=== PATIENT | female | born 1970 | race Caucasian/White ===

== ENCOUNTER 2017-07-07 14:46 | Emergency (ER) | payer OTHER ==
[~2017-07-07] VITALS: Ht 160 cm; Wt 117.9 kg
--- NOTE | 2017-07-07 15:48 | ED Upper Extremity ---
General Chief Complaint: Upper Extremity Stated Complaint: R SHOULDER PAIN Nursing Triage Note: pt presents to ed with complaints of r shoulder pain. reports has an old injury but pain is wosr since sunday. Nursing Sepsis Screen: No Definite Risk Source: patient Exam Limitations: no limitations History of Present Illness Date Seen by Provider: July 07, 2017 Time Seen by Provider: 15:48 Initial Comments Patient presents to the emergency department with complaints of right shoulder pain. Does report an old injury "from when she was younger". Denies any known recent injury. States she was driving when she lifted the right arm. Leighton a sharp pain on the right shoulder. Now has difficulty elevating the arm above 90 . Onset: yesterday (chronic pain, worse yesterday) Pain/Injury Location: right shoulder Method of Injury: other (lifted the right arm while driving yesterday.) Modifying Factors: Improves With Immobilization; Worse With Movement Allergies and Home Medications Allergies Coded Allergies: Sulfa (Sulfonamide Antibiotics) (Verified Allergy, Severe, 07/07/17) erythromycin base (Verified Allergy, Unknown, 07/07/17) Home Medications Orphenadrine Citrate 100 Mg Tablet.er, 100 MG PO BID PRN for SPASMS Prescribed by: KATHRINE DURANT on 07/07/17 1633 Prednisone 20 Mg Tab, 40 MG PO DAILY Prescribed by: KATHRINE DURANT on 07/07/17 1633 Tramadol HCl 50 Mg Tablet, 50 MG PO Q6H PRN for pain Prescribed by: KATHRINE DURANT on 07/07/17 1633 Patient Home Medication List Home Medication List Reviewed: Yes Constitutional: no symptoms reported Respiratory: no symptoms reported Cardiovascular: no symptoms reported Gastrointestinal: no symptoms reported Musculoskeletal: see HPI; No back pain; joint pain (right shoulder pain); No joint swelling, No neck pain Skin: no symptoms reported Psychiatric/Neurological: Denies Numbness, Denies Paresthesia, Denies Tingling , Denies Weakness All Other Systems Reviewed Negative Unless Noted: Yes (Negative excepted noted.) Past Ksfbhda-Taanil-Nvmwfe Hx Patient Social History Alcohol Use: Occasionally Uses Recreational Drug Use: No Smoking Status: Former Smoker Type Used: Cigarettes Former Smoker, Quit: July 20, 2015 Recent Foreign Travel: No Contact w/Someone Who Travel: No Recent Infectious Disease Expo: No Physical Abuse: No Sexual Abuse: No Fear: No Past Medical History Respiratory: No Cardiac: No Neurological: No Gastrointestinal: No Musculoskeletal: Yes (chronic right shoulder pain) Nursing Suicide Risk Score: 0 Family Medical History Reviewed Nursing Family Hx No Pertinent Family Hx Physical Exam Vital Signs Vital Signs - First Documented 07/07/17 14:57 Temp 97.1 Pulse 103 Resp 16 B/P (MAP) 169/90 (116) Pulse Ox 98 Capillary Refill : Less Than 3 Seconds General Appearance: WD/WN, no apparent distress Neck: non-tender, full range of motion, supple, normal inspection Cardiovascular: normal peripheral pulses, regular rate, rhythm, no murmur Respiratory: chest non-tender, lungs clear, normal breath sounds, no respiratory distress, no accessory muscle use Back: normal inspection, no vertebral tenderness Shoulder: normal inspection, no evidence of injury, limited ROM (patient is able to abduct the right shoulder from 0-80. Tenderness over the right posterior shoulder and right lateral shoulder. No evidence of swelling, deformity, ecchymosis, or abrasions.) Elbow/Forearm: normal inspection, non-tender, no evidence of injury, normal ROM , Right Wrist: Yes normal inspection, Yes non-tender, Yes no evidence of injury, Yes normal ROM Hand: normal inspection, non-tender, no evidence of injury, normal ROM, Right Neurologic/Tendon: normal sensation, normal motor functions, normal tendon functions, responds to pain, no evidence tendon injury Neurologic/Psychiatric: no motor/sensory deficits, alert, normal mood/affect, oriented x 3 Skin: normal color, warm/dry Progress/Results/Core Measures Results/Orders My Orders Orders - KATHRINE DURANT Shoulder, Right, 3 Views (07/07/17 16:30) Ketorolac Injection (Toradol Injection) (07/07/17 16:30) Orphenadrine Injection (Norflex Injectio (07/07/17 16:30) Vital Signs/I&O 07/07/17 07/07/17 14:57 17:30 Temp 97.1 Pulse 103 84 Resp 16 20 B/P (MAP) 169/90 (116) 140/93 Pulse Ox 98 99 Blood Pressure Mean: 116 Diagnostic Imaging Diagonstic Imaging: Xray Plain Films/CT/US/NM/MRI: other (right shoulder) Comments SHOULDER, RIGHT, 3 VIEWS INDICATION: Right shoulder pain. COMPARISON: None available. TECHNIQUE: Three views of the right shoulder. FINDINGS: No acute fracture or traumatic malalignment. Heterotopic ossification is present along the superior aspect of the greater tuberosity which is likely in the rotator cuff and due to old trauma. Subacromial space is well maintained. Right lung is clear. IMPRESSION: Heterotopic ossification in the region of the rotator cuff insertion is likely due to old trauma and/or calcific tendinitis. Dictated by: Dictated on workstation # [id number] Reviewed: Reviewed by Me (radiology report reviewed by me) Departure Communication (Admissions) Diagnostic findings discussed with the patient. Plan for discharge to home. Impression Primary Impression: Right rotator cuff tendinitis Disposition: HOME, SELF-CARE Condition: Improved Departure-Patient Inst. Decision time for Depature: 17:10 Referrals: ELISABETH CUEVAS MD (PCP/Family) Primary Care Physician Patient Instructions: Rotator Cuff Tendinitis Strengthening Exercises, Rotator Cuff Tendinitis Stretching Exercises Add. Discharge Instructions: All discharge instructions reviewed with patient and/or family. Voiced understanding. Medications as instructed. Tylenol Extra Strength over-the- counter as directed for pain. Ibuprofen lhxw-das-cybwjkh as directed for pain. Avoid heavy lifting, pushing, or pulling for 3-5 days. Increase activity as tolerated. Follow-up with your primary care provider if no improvement in symptoms in 7-10 days. Return to the emergency department for worsened symptoms or any other concerns. Scripts Tramadol HCl (Tramadol HCl) 50 Mg Tablet 50 MG PO Q6H PRN for pain, #14 TAB 0 Refills Prov: KATHRINE DURANT 07/07/17 Orphenadrine Citrate (Orphenadrine Citrate) 100 Mg Tablet.er 100 MG PO BID PRN for SPASMS, #10 TAB 0 Refills Prov: KATHRINE DURANT 07/07/17 Prednisone (Prednisone) 20 Mg Tab 40 MG PO DAILY, #10 TAB 0 Refills Prov: KATHRINE DURANT 07/07/17 KATHRINE DURANT July 07, 2017 15:48
[2017-07-07] MEDS ORDERED: KETOROLAC 60 MG/2 ML VIAL IM STA (16:30)
[2017-07-07] MEDS ORDERED: ORPHENADRINE 60 MG/2 ML (NORFLEX) AMP IM STA (16:30)
[2017-07-07] MEDS ORDERED: PRD20T PO (16:33)
[2017-07-07] MEDS ORDERED: ORPH100T PO (16:33)
[2017-07-07] MEDS ORDERED: TRAM50TA2 PO (16:33)
--- NOTE | 2017-07-07 16:55 | Diagnostic Imaging Report ---
INDICATION: Right shoulder pain. COMPARISON: None available. TECHNIQUE: Three views of the right shoulder. FINDINGS: No acute fracture or traumatic malalignment. Heterotopic ossification is present along the superior aspect of the greater tuberosity which is likely in the rotator cuff and due to old trauma. Subacromial space is well maintained. Right lung is clear. IMPRESSION: Heterotopic ossification in the region of the rotator cuff insertion is likely due to old trauma and/or calcific tendinitis. Dictated by: Dictated on workstation # [id number]
[2017-07-07 17:30] VITALS: BP 140/93
== END 2017-07-07 17:31 | disposition home or self-care (01) ==
LOC: ER 14:48
DX: M75.101 Unspecified rotator cuff tear or rupture of right shoulder, not specified as traumatic (principal); Z87.891 Personal history of nicotine dependence; Z88.2 Allergy status to sulfonamides; Z88.1 Allergy status to other antibiotic agents; Z87.828 Personal history of other (healed) physical injury and trauma
CPT/HCPCS: 73030; 96372

== ENCOUNTER → 2017-11-20 | Outpatient (CLI) | payer OTHER ==
[~2017-11-20] MED LIST: ORPH100T PO; PRD20T PO; TRAM50TA2 PO
--- NOTE | 2017-11-20 13:55 | Diagnostic Imaging Report ---
EXAMINATION: Supine abdomen at 12:22 p.m. INDICATION: Right flank pain. FINDINGS: There are no prior studies available for comparison. There is a faint 3 mm area of increased density overlying the right renal contour. This could represent a small intrarenal calculus. There is no other calcification identified and there is no sign of a calculus along the expected path of the right ureter. There is no sign of nephrolithiasis on the left. There are a few elongated calcifications low in the pelvis on the left. These may represent phleboliths as opposed to a ureteral stone. There is gas in both the large and small bowel in a nonspecific fashion. There is no sign of bowel obstruction. There is no mass or organomegaly appreciated. The osseous structures are intact. There is at least moderate sclerosis of the left sacroiliac joint. IMPRESSION: 1. There is a question of nephrolithiasis on the right. If further study is desired, then CT will be recommended. 2. There is no other evidence for nephrolithiasis or urolithiasis. 3. The bowel gas pattern is nonspecific. There is no acute abnormality noted. Dictated by: Dictated on workstation # [id number]
== END ==
LOC: RAD 11:46
PROVIDERS: ATTEND Nurse Practitioner Family
DX: R10.9 Unspecified abdominal pain (principal); R31.9 Hematuria, unspecified
CPT/HCPCS: 74018

== ENCOUNTER → 2017-11-23 | Outpatient (CLI) | payer OTHER ==
--- NOTE | 2017-11-23 11:37 | Diagnostic Imaging Report ---
PROCEDURE: CT urinary tract, rule out kidney stone. TECHNIQUE: Multiple contiguous axial images were obtained through the abdomen and pelvis without the use of intravenous contrast. INDICATION: Right-sided pain. There are no prior CT examinations available for comparison. FINDINGS: The plain film examination of the abdomen performed on 11/20/2017 did raise the question of nephrolithiasis on the right. On this study, however, there is no sign of a calculus within the right kidney or along the expected path of the right ureter. The right kidney does not appear to be obstructed either. There is no sign of nephrolithiasis or urolithiasis on the left either. There is mild perinephric stranding about both kidneys. This may be a sequela of prior episodes of infection/inflammation. In the right adnexa adjacent to the uterus, there is a 3.7 x 7.3 CM septated cystic mass. I suspect that this is arising from the right ovary. If further study is desired, then ultrasound would be recommended. The uterus itself does not appear to be enlarged. The endometrial lining is slightly thickened measuring 18 MM (normal 5 mm or less). This finding is nonspecific. Correlation with the patient's menstrual cycle would be recommended. The left ovary is unremarkable. There is no solid pelvic mass or free fluid collection evident. The urinary bladder is grossly unremarkable. The liver, spleen, pancreas, adrenals, gallbladder, aorta and inferior vena cava show no sign of an acute abnormality. The stomach is partially filled with fluid and consequently difficult to assess. The lung bases are clear. The bone windows show no evidence for fracture or for destructive lesion. IMPRESSION: 1. There is no evidence for nephrolithiasis or urolithiasis and the kidneys do not appear to be obstructed. 2. There is a septated cystic mass in the right adnexa. This is most likely arising from the right ovary. If further study is desired, then ultrasound would be recommended. 3. There is no acute abnormality of the abdomen or pelvis noted otherwise. Dictated by: Dictated on workstation # [id number]
== END ==
LOC: RAD 08:55
PROVIDERS: ATTEND Nurse Practitioner Family
DX: N83.8 Other noninflammatory disorders of ovary, fallopian tube and broad ligament (principal); R10.9 Unspecified abdominal pain
CPT/HCPCS: 74176

== ENCOUNTER → 2017-12-13 | Outpatient (CLI) | payer OTHER ==
--- NOTE | 2017-12-13 14:13 | Diagnostic Imaging Report ---
EXAMINATION: Pelvic ultrasound. INDICATION: Right ovarian cyst. FINDINGS: There are no prior ultrasound examinations available for comparison. The CT abdomen/pelvis exam of 11/23/2017 did suggest a 3.7 x 7.3 cm septated mass arising from the right adnexa. On this exam, there is a 6.7 x 3.5 x 3.8 cm septated cystic mass evident in the right adnexa. I suspect that this is arising from the right ovary although the right ovary itself was difficult to visualize. The left ovary cannot be identified either. There is no solid pelvic mass or free fluid collection to indicate an acute abnormality. The uterus is not enlarged measuring 7.7 x 6.1 x 4.9 cm. The endometrial lining is not thickened measuring 5 mm. There is no focal mass involving the uterus to suggest a fibroid. IMPRESSION: 1. There is a 6.7 x 3.5 x 3.8 cm septated cystic mass in the right adnexa. This is most likely arising from the right ovary although the right ovary itself was not well visualized. If further study is desired, then laparoscopy should be considered. If there is no intervention at this time, then a short-term (4-6 weeks) follow-up pelvic ultrasound exam would be recommended. 2. There is no acute pelvic abnormality noted otherwise. 3. The left ovary is not identified either. Dictated by: Dictated on workstation # [id number]
== END ==
LOC: RAD 10:57
PROVIDERS: ATTEND Nurse Practitioner Family
DX: N83.201 Unspecified ovarian cyst, right side (principal)
CPT/HCPCS: 76830; 76856

== ENCOUNTER 2018-06-09 13:05 | Emergency (ER) | payer OTHER ==
[~2018-06-09] VITALS: Ht 162.6 cm; Wt 117.9 kg
--- NOTE | 2018-06-09 13:51 | ED Upper Extremity ---
General Chief Complaint: Upper Extremity Stated Complaint: RT SHOULDER PAIN Nursing Triage Note: reached down to grab something and heard a very loud pop on her right shoulder, she thought she felt her shoulder separate. Pt states pain is 5/10 without movement but when she does its excruciating. Arm is tender at the upper arm, humerous area. Pt states she has very limited ROM Nursing Sepsis Screen: No Definite Risk Source: patient Exam Limitations: no limitations History of Present Illness Date Seen by Provider: Jun 09, 2018 Time Seen by Provider: 13:25 Initial Comments This 47-year-old woman presents to the emergency room with complaints of pain in the right upper arm and shoulder. The pain was of sudden onset when she was reaching down to between her legs to pick something up. She felt and heard a sudden popping and wondered if her shoulder became dislocated. Her pain seems to be focused around the proximal bicep region on the anterior right upper arm. She reports having problems with her rotator cuff on the right previously but has not experienced significant trouble with it until this acute injury today. She denies any strenuous activity recently. She has not grasped, pulled, or lifted anything under stress. Onset: just prior to arrival Allergies and Home Medications Allergies Coded Allergies: Sulfa (Sulfonamide Antibiotics) (Verified Allergy, Severe, 07/07/17) erythromycin base (Verified Allergy, Unknown, 07/07/17) Home Medications Hydrocodone/Acetaminophen 1 Each Tablet, 1 TAB PO Q4-6HR Prescribed by: JEFFRY BAXTER on 06/09/18 1428 Orphenadrine Citrate 100 Mg Tablet.er, 100 MG PO BID PRN for SPASMS Prescribed by: KATHRINE DURANT on 07/07/17 1633 Prednisone 20 Mg Tab, 40 MG PO DAILY Prescribed by: KATHRINE DURANT on 07/07/17 1633 Tramadol HCl 50 Mg Tablet, 50 MG PO Q6H PRN for pain Prescribed by: KATHRINE DURANT on 07/07/17 1633 Patient Home Medication List Home Medication List Reviewed: Yes Review of Systems Constitutional: no symptoms reported EENTM: no symptoms reported Respiratory: no symptoms reported Cardiovascular: no symptoms reported Gastrointestinal: no symptoms reported Genitourinary: no symptoms reported Musculoskeletal: see HPI Skin: no symptoms reported Psychiatric/Neurological: No Symptoms Reported Past Pqnrlty-Fkmyer-Esskta Hx Past Med/Social Hx: Reviewed Nursing Past Med/Soc Hx Patient Social History Alcohol Use: Occasionally Uses Recreational Drug Use: No Type Used: Cigarettes Former Smoker, Quit: July 20, 2015 Recent Foreign Travel: No Contact w/Someone Who Travel: No Recent Infectious Disease Expo: No Past Medical History Respiratory: No Cardiac: No Neurological: No : No Gastrointestinal: No Musculoskeletal: Yes (chronic right shoulder pain) Endocrine: No HEENT: No Cancer: No Psychosocial: No Family Medical History No Pertinent Family Hx Physical Exam Vital Signs Vital Signs - First Documented 06/09/18 13:13 Temp 98.3 Pulse 80 Resp 18 B/P (MAP) 147/78 (101) Pulse Ox 100 O2 Delivery Room Air Capillary Refill : Less Than 3 Seconds Height, Weight, BMI Height: 5'4.00" Weight: 260lbs. oz. 117.079599ra; BMI Method:Stated General Appearance: WD/WN, no apparent distress HEENT: PERRL/EOMI, normal ENT inspection, pharynx normal Neck: normal inspection Cardiovascular: regular rate, rhythm, no edema, no murmur Respiratory: lungs clear, normal breath sounds, no respiratory distress, no accessory muscle use Shoulder: normal inspection, non-tender, normal ROM (Normal passive range of motion and no pain with passive range of motion) Elbow/Forearm: Left (Left anterior arm tender to palpation. Biceps muscle feels shortened and lumped in the distal arm. Supination of the forearm causes pain in the distal upper arm) Wrist: Yes normal inspection, Yes non-tender, Yes no evidence of injury, Yes normal ROM Hand: normal inspection, non-tender, no evidence of injury, normal ROM Neurologic/Tendon: normal sensation, normal motor functions, normal tendon functions Neurologic/Psychiatric: creative resource manager II-XII nml as tested, no motor/sensory deficits, alert, normal mood/affect, oriented x 3 Skin: normal color, warm/dry Progress/Results/Core Measures Results/Orders My Orders Orders - JEFFRY GANT MD Shoulder, Right, 3 Views (06/09/18 13:36) Humerus, Right, 2 Views (06/09/18 13:36) Vital Signs/I&O Blood Pressure Mean: 101 Progress Progress Note : Progress Note X-rays were unremarkable for acute injury. I am suspicious that patient has a biceps tendon injury based on physical exam and history. Referral to orthopedics was recommended. Sling was provided for comfort. Diagnostic Imaging Diagonstic Imaging: Xray Comments Right shoulder X-ray viewed by me and report reviewed. See report below: NAME: LYNDA SMITH MED REC#: [id number] PT STATUS: REG ER : 1970 PHYSICIAN: JEFFRY GANT MD ADMIT DATE: 06/09/18/ER Draft Date of Exam:06/09/18 SHOULDER, RIGHT, 3 VIEWS Right shoulder at 152h. INDICATION: Shoulder pain 3 views were obtained. There is no fracture, dislocation or acute bony abnormality evident. The degenerative changes involving the shoulder joint and the soft tissue calcification adjacent to the greater tuberosity seen on the prior exam of 07/07/2017 are again visualized and no different. IMPRESSION: 1. There is no evidence for an acute bony abnormality. 2. If there is clinical concern regarding an injury to the rotator cuff or labrum, then MRI would be recommended for further study. Dictated on workstation # [id number] Dict: 06/09/18 1358 Trans: 06/09/18 1408 [facility] [id number] Interpreted by: LUANA STEINBERG MD Diagonstic Imaging: Xray Plain Films/CT/US/NM/MRI: other (humerus) Comments Right humerus x-ray viewed by me and report reviewed. See report below: NAME: LYNDA SMITH MED REC#: [id number] PT STATUS: REG ER : 1970 PHYSICIAN: JEFFRY GANT MD ADMIT DATE: 06/09/18/ER Draft Date of Exam:06/09/18 HUMERUS, RIGHT, 2 VIEWS EXAMINATION: Right humerus at 149 INDICATION: Shoulder pain 2 views were obtained. There is no fracture, dislocation or acute bony abnormality noted. There are degenerative changes involving the shoulder joint seen on the right shoulder exam performed in conjunction to the study are again visualized. The elbow joint shows only mild degenerative disease. The soft tissues are unremarkable. IMPRESSION: There is no evidence for an acute bony abnormality. Dictated on workstation # [id number] Dict: 06/09/18 1402 Trans: 06/09/18 1410 [facility] [id number] Interpreted by: LUANA STEINBERG MD Departure Impression Primary Impression: Injury of tendon of biceps Disposition: 01 HOME, SELF-CARE Condition: Stable Departure-Patient Inst. Decision time for Depature: 14:25 Referrals: ELISABETH CUEVAS MD (PCP/Family) Primary Care Physician ETHAN SANDOVAL MD Patient Instructions: Biceps Tendon Rupture Add. Discharge Instructions: Based on the description of your injury and your exam, it is possible that you have been injured biceps tendon. Use the sling as needed for comfort. You may use ibuprofen up to 600 mg every 6 hours as needed for pain. For pain not controlled by ibuprofen, add either Tylenol (acetaminophen) up to 1000 mg every 6 hours or hydrocodone as prescribed. Follow-up with an orthopedic provider of your choosing as soon as possible. You may ice in 20 minute intervals to help with pain and swelling. Avoid supination and flexion of the arm at the elbow against resistance until evaluated by an orthopedic provider. Return to care if symptoms worsen. All discharge instructions reviewed with patient and/or family. Voiced understanding. Scripts Hydrocodone/Acetaminophen (Hydrocodone-Acetamin 5-325 mg) 1 Each Tablet 1 TAB PO Q4-6HR for PAIN-MODERATE MDD 10, #10 TAB Prov: JEFFRY GANT MD 06/09/18 Copy Copies To 1: ETHAN SANDOVAL MD, JOSHUA T MD Jun 09, 2018 13:51
--- NOTE | 2018-06-09 14:09 | Diagnostic Imaging Report ---
Right shoulder at 152h. INDICATION: Shoulder pain 3 views were obtained. There is no fracture, dislocation or acute bony abnormality evident. The degenerative changes involving the shoulder joint and the soft tissue calcification adjacent to the greater tuberosity seen on the prior exam of 07/07/2017 are again visualized and no different. IMPRESSION: 1. There is no evidence for an acute bony abnormality. 2. If there is clinical concern regarding an injury to the rotator cuff or labrum, then MRI would be recommended for further study. Dictated by: Dictated on workstation # [id number]
--- NOTE | 2018-06-09 14:11 | Diagnostic Imaging Report ---
EXAMINATION: Right humerus at 149 INDICATION: Shoulder pain 2 views were obtained. There is no fracture, dislocation or acute bony abnormality noted. There are degenerative changes involving the shoulder joint seen on the right shoulder exam performed in conjunction to the study are again visualized. The elbow joint shows only mild degenerative disease. The soft tissues are unremarkable. IMPRESSION: There is no evidence for an acute bony abnormality. Dictated by: Dictated on workstation # [id number]
[2018-06-09] MEDS ORDERED: HYDR-3812 PO (14:28)
[2018-06-09 14:37] VITALS: BP 138/72
== END 2018-06-09 14:37 | disposition home or self-care (01) ==
LOC: EDUNIT# 13:05 → ER 13:06
DX: S46.201A Unspecified injury of muscle, fascia and tendon of other parts of biceps, right arm, initial encounter (principal); Z88.2 Allergy status to sulfonamides; Z79.52 Long term (current) use of systemic steroids; Z87.891 Personal history of nicotine dependence; Z91.040 Latex allergy status; X50.1XXA Overexertion from prolonged static or awkward postures, initial encounter
CPT/HCPCS: 73030; 73060